=== PATIENT | male | born 2000 | race Caucasian/White ===

== ENCOUNTER 2024-08-19 12:11 | Emergency (ER) | payer OTHER | END 2024-08-19 14:06 | disposition home or self-care (01) | LOC: JD.ED 12:11 | DX: R07.89 Other chest pain (principal); R07.81 Pleurodynia; I10 Essential (primary) hypertension; Z79.899 Other long term (current) drug therapy | CPT/HCPCS: 71045; 71045-26; 99283; 99284 ==